=== PATIENT | female | born 1985 | race Two or more races ===

== ENCOUNTER 2024-06-13 09:58 | Inpatient (IN) | payer MEDICAID, OTHER ==
[~2024-06-13] VITALS: Ht 160 cm; Wt 82.6 kg
[2024-06-13] VITALS (11 sets, daily range): BP systolic 103–124; BP diastolic 66–83; PULSE 64–87; RESP 13–18; TEMP 97.4–98.4; O2SAT 97–100
[2024-06-13 11:47] LABS: Urine Bacteria None Seen /hpf (None Seen)
[2024-06-13] MEDS ORDERED: MORPHINE SULF PF 5 MG/10 ML VIAL ONE (11:47)
[2024-06-13 12:00] LABS: Urine Blood Negative /uL (Negative); Urine Clarity Clear (Clear); Urine Color Colorless (Yellow); Urine Protein, UAD Negative (Negative); Urine Specific Gravity 1.002 (1.001-1.035); Urine Urobilinogen Normal (Negative); Urine WBC <1 /hpf (0 - 5)
[2024-06-13 12:05] LABS: Basophils # (auto) 0 10 ^3/uL (0-0.2); Basophils % (auto) 0.2 % (0.0-2.0); Eosinophils # (auto) 0.1 10 ^3/uL (0-0.8); Eosinophils % (auto) 1.3 % (0.0-7.0); Hematocrit 33.1 % (36.0-46.0); Hemoglobin 11.1 g/dL (12.2-16.2); Lymphocytes # (auto) 1.4 10 ^3/uL (0.4-5.4); Lymphocytes % (auto) 21.8 % (10.0-50.0); Mean Corpuscular Hemoglobin 28.8 pg (28.0-32.0); Mean Corpuscular Hgb Conc. 33.6 g/dL (32.0-36.0); Mean Corpuscular Volume 85.7 fL (80.0-100.0); Monocytes # (auto) 0.3 10 ^3/uL (0-1.3); Monocytes % (auto) 5.3 % (0.0-12.0); Neutrophils # (auto) 4.7 10 ^3/uL (1.6-8.6); Neutrophils % (auto) 71.4 % (37.0-80.0); Nucleated Red Blood Cells % 0.2 %; Red Blood Cells 3.86 10^6/uL (4.0-5.20); Red Cell Distribution Width 16.8 % (11.8-14.3); White Blood Cell 6.6 10^3/uL (4.4-10.8)
[2024-06-13 12:13] LABS: Amphetamine Screen, Urine Neg (NEGATIVE); Barbiturate Scree,Urine Neg (NEGATIVE); Benzodiazephine Screen, Urine Neg (NEGATIVE); Cannabinoid Screen, Urine Neg (NEGATIVE); Cocaine Screen, Urine Neg (NEGATIVE); Opiate Scree,Urine Neg (NEGATIVE); Phencyclidine Screen, Urine Neg (NEGATIVE)
[2024-06-13] MEDS: LACTATED RINGER'S 1,000 ML IV ONE (12:19)
[2024-06-13 12:21] LABS: Alanine Aminotransferase 20 U/L (7-40); Albumin 3.8 g/dL (3.2-4.8); Alkaline Phosphatase 157 U/L (46-116); Anion Gap 8 (5-15); Aspartate Aminotransferase 27 U/L (13-40); Bilirubin, Total 0.4 mg/dL (0.2-1.0); Carbon Dioxide 22 mmol/L (20-30); Chloride 107 mmol/L (98-107); Glucose 75 mg/dL (74-106); Potassium 3.9 mmol/L (3.5-5.1); Sodium 137 mmol/L (136-145); Total Protein 6.1 g/dL (5.7-8.2)
[2024-06-13 12:22] LABS: INR 0.91 (0.9-1.15); Partial Thromboplastin Time 24.5 SEC (24.5-34.5); Prothrombin Time 9.7 sec (9.3-11.8)
[2024-06-13] MEDS: ceFAZolin 2 GM/D5W50ml 50 ML IV ONE (12:23)
[2024-06-13] MEDS ORDERED: DOCU-94 PO (12:35)
[2024-06-13] MEDS ORDERED: HYDR-4902 PO (12:35)
[2024-06-13] MEDS ORDERED: IBUP-1456 PO (12:35)
[2024-06-13] MEDS: LACT. RINGERS/OXYTOCIN 20UNITS 1,000 ML IV ONE (12:45)
[2024-06-13] MEDS ORDERED: ceFAZolin 1GM/50ML 50 ML IV SCH (12:45)
[2024-06-13] MEDS ORDERED: ONDANSETRON HCL 4 MG/2 ML VIAL IV PRN ×2 (12:45→14:15)
[2024-06-13] MEDS ORDERED: ePHEDrine SULFATE 50 MG/ML AMP ONE (12:51)
[2024-06-13] MEDS ORDERED: oxyTOCIN 10 UNIT/ML 10ML VIAL ONE (12:51)
[2024-06-13] MEDS ORDERED: ONDANSETRON HCL 4 MG/2 ML VIAL ONE (12:52)
[2024-06-13 12:55] LABS: BUN/Creatinine Ratio 9.8 (10.0-20.0); Blood Urea Nitrogen < 5 mg/dL (9-23)
[2024-06-13] MEDS: CARBOPROST TROMETHAMINE 250 MCG/1ML VIAL IM ONE (13:10)
[2024-06-13 14:12] LABS: Large Platelets FEW; Platelet Estimate Decreased
[2024-06-13] MEDS ORDERED: DexAMETHasone SOD PHOS 10MG/1ML VIAL INJ IV PRN (14:15)
[2024-06-13] MEDS: ONDANSETRON HCL 4 MG/2 ML VIAL IV ONE (14:15)
[2024-06-13] MEDS: NALBUPHINE HCL 10 MG/1ml INJECTION SUBCUT ONE (14:15)
[2024-06-13] MEDS ORDERED: NALOXONE HCL 0.4 MG/ML VIAL IV PRN (14:15)
[2024-06-13] MEDS ORDERED: HYDROmorphone HCL 2 MG/ML VL/or syr IV PRN ×2 (14:15)
[2024-06-13] MEDS ORDERED: KETOROLAC TROMETH 30 MG/ML 1ML VIAL IV PRN (14:15)
[2024-06-13] MEDS ORDERED: MEPERIDINE HCL (25 MG/ML) 1ML VIAL IV PRN (14:15)
[2024-06-13] MEDS ORDERED: diphenhdrAMINE HCL 50 MG/1 ML VL IV PRN (14:15)
[2024-06-13] MEDS: TRANEXAMIC ACID 1,000 MG in SODIUM CHL 0.9% 100 ML IV ONE (16:01)
[2024-06-13] MEDS: ACETAMINOPHEN IV 1000 MG/100ML (10MG/ML) IV PRN (16:06)
[2024-06-13] MEDS: ceFAZolin 1GM/50ML 50 ML IV SCH (21:11)
[2024-06-13 21:23] LABS: Basophils # (auto) 0 10 ^3/uL (0-0.2); Basophils % (auto) 0.2 % (0.0-2.0); Eosinophils # (auto) 0 10 ^3/uL (0-0.8); Eosinophils % (auto) 0.4 % (0.0-7.0); Hematocrit 33.5 % (36.0-46.0); Hemoglobin 11.4 g/dL (12.2-16.2); Lymphocytes # (auto) 1.4 10 ^3/uL (0.4-5.4); Lymphocytes % (auto) 14.5 % (10.0-50.0); Mean Corpuscular Hemoglobin 29.4 pg (28.0-32.0); Mean Corpuscular Hgb Conc. 34.1 g/dL (32.0-36.0); Mean Corpuscular Volume 86.3 fL (80.0-100.0); Monocytes # (auto) 0.4 10 ^3/uL (0-1.3); Neutrophils # (auto) 7.5 10 ^3/uL (1.6-8.6); Neutrophils % (auto) 80.9 % (37.0-80.0); Nucleated Red Blood Cells % 0.2 %; Red Blood Cells 3.88 10^6/uL (4.0-5.20); Red Cell Distribution Width 16.9 % (11.8-14.3); White Blood Cell 9.3 10^3/uL (4.4-10.8)
[2024-06-14] VITALS (10 sets, daily range): BP systolic 94–132; BP diastolic 47–79; PULSE 63–94; RESP 16–20; TEMP 98.5–98.9; O2SAT 94–100
[2024-06-14 06:45] LABS: Basophils # (auto) 0 10 ^3/uL (0-0.2); Basophils % (auto) 0.1 % (0.0-2.0); Eosinophils # (auto) 0.1 10 ^3/uL (0-0.8); Eosinophils % (auto) 0.6 % (0.0-7.0); Hemoglobin 11.8 g/dL (12.2-16.2); Lymphocytes # (auto) 1.1 10 ^3/uL (0.4-5.4); Lymphocytes % (auto) 11.3 % (10.0-50.0); Mean Corpuscular Hemoglobin 29.7 pg (28.0-32.0); Mean Corpuscular Hgb Conc. 34.8 g/dL (32.0-36.0); Mean Corpuscular Volume 85.6 fL (80.0-100.0); Monocytes # (auto) 0.5 10 ^3/uL (0-1.3); Monocytes % (auto) 5.1 % (0.0-12.0); Neutrophils # (auto) 8.4 10 ^3/uL (1.6-8.6); Neutrophils % (auto) 82.9 % (37.0-80.0); Red Blood Cells 3.97 10^6/uL (4.0-5.20); Red Cell Distribution Width 16.9 % (11.8-14.3); White Blood Cell 10.1 10^3/uL (4.4-10.8)
[2024-06-14] MEDS: LACTATED RINGER'S 1,000 ML IV SCH (12:34)
[2024-06-14] MEDS ORDERED: HYDROcodone-ACET 5/325MG TAB PO PRN (13:30)
[2024-06-14] MEDS: HYDROcodone-ACET 5/325MG TAB PO PRN (16:32)
[2024-06-14] MEDS: SIMETHICONE 80 MG CHEWABLE TABLET PO SCH (17:09)
[2024-06-14] MEDS: IBUPROFEN 800 MG TAB PO PRN (20:32)
[2024-06-14] MEDS: DOCUSATE SOD 100 MG CAP PO SCH (21:30)
[2024-06-15 02:55] VITALS: BP 105/66; PULSE 70; RESP 16; TEMP 98.7; O2SAT 97
[2024-06-15 07:15] VITALS: BP 109/73; PULSE 63; RESP 18; TEMP 98.4; O2SAT 96
[2024-06-15] MEDS: DOCUSATE CALCIUM 240 MG CAP PO SCH (09:47)
[2024-06-15 11:30] VITALS: BP 107/62; PULSE 70; RESP 18; TEMP 98.4; O2SAT 96
[2024-06-17 09:01] LABS: Hepatitis B Surface Antigen Negative (Negative)
[2024-06-17 09:22] LABS: Hepatitis C Antibody Negative (Negative)
== END 2024-06-15 14:23 | disposition home or self-care (01) | DRG 540 ==
LOC: LDRP 09:58 → UNDOADMOB 09:58 → LDRP 10:19 → OBSVTOIN 11:32 → LDRP 11:33
PROVIDERS: ADMIT Obstetrics & Gynecology; ATTEND Obstetrics & Gynecology
PROC: 10D00Z1 Extraction of Products of Conception, Low, Open Approach (ICD-10-PCS; principal; 2024-06-13 12:38)
DX: O34.211 Maternal care for low transverse scar from previous cesarean delivery (principal); Z37.0 Single live birth; Z3A.39 39 weeks gestation of pregnancy
CPT/HCPCS: 36415; 76805; 76818; 80053; 80307; 81001; 85025; 85610; 85730; 86592; 86703; 86762; 86803; 86850; 86870; 86900; 86901; 87340; 94760; 94762; 96365; 96366; G0378; J0131; J2405; J2590